=== PATIENT | female | born 1970 | race American Indian/Alaskan Native ===

== ENCOUNTER 2017-04-03 11:18 | Emergency (ER) | payer OTHER ==
[2017-04-03 11:32] VITALS: BP 139/87; PULSE 75; TEMP 98.1; BMI 32.9
--- NOTE | 2017-04-03 12:53 | PDOC ---
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 The patient was HepC +. Blood was drawn from her and the patient to test for HIV and HepB. The patient did clean the area after the needle stick and is requesting HIV test here as well as bloodwork. Past History - Past Medical History Allergies/Adverse Reactions: Allergies Allergy/AdvReac Type Severity Reaction Status Date / Time metformin Allergy Verified 04/03/17 11:32 Home Medications: Ambulatory Orders Levothyroxine [Synthroid -] 75 mcg PO DAILY 05/24/14 COPD: No Thyroid Disease: Yes (nodule) - Suicide/Smoking/Psychosocial Hx Smoking History: Never smoked Number of Cigarettes Smoked Daily: 0 Hx Alcohol Use: No Drug/Substance Use Hx: No Substance Use Type: None Review of Systems - Review of Systems Able to Perform ROS?: Yes Integumentary: Yes: Other (needle stick to 4th finger of right hand) *Physical Exam - Vital Signs Last Vital Signs Temp Pulse Resp BP Pulse Ox 98.1 F 75 16 139/87 100 04/03/17 11:29 04/03/17 11:29 04/03/17 11:29 04/03/17 11:29 04/03/17 11:29 - Physical Exam Extremity: positive: Normal Range of Motion, Other (small puncture wound to right 4th digit without active bleeding, surrounding erythema or edema. ) Post Exposure - ED Protocol - Exposure Treatment Washing/Decontamination: Soap/Water Source Patient HIV Status:: Unknown (Patient is known Hepatitis C positive. 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 The patient requests HIV test here as well as bloodwork) Is PEP indicated?: No Prophylaxis for HIV discussed?: Yes Prophylaxis given?: No Prophylaxis refused?: No Baseline bloods drawn prophylaxis:(use *Exposure-Hosp Emp): Yes - Referrals Employee Referred to Employee Health:: Yes Medical Decision Making - Medical Decision Making A/P: 46 y/o female with needle stick injury today from patient with known Hep C. Plan is to test for HIV and do baseline bloodwork. Patient was informed there is no PEP for Hep C and conversion rate of 1.8%. HIV - negative Gave patient her results. Instructed her to return if the blood work comes back from the patient with + HIV or Hep B status. The patient verbalizes understanding of all instructions, has no further questions and is awaiting discharge. *DC/Admit/Observation/Transfer Diagnosis at time of Disposition: Exposure to blood or body fluid Needlestick injury of finger Qualifiers: Encounter type: initial encounter Qualified Code(s): S61.239A - Puncture wound without foreign body of unspecified finger without damage to nail, initial encounter - Discharge Dispostion Disposition: HOME Condition at time of disposition: Good - Referrals Referrals: Nisa Mccall MD [Primary Care Provider] - - Patient Instructions Printed Discharge Instructions: How to Handle Body Fluid Exposure -- Healthcare Worker Additional Instructions: Discharge Instructions: -Return to the ER if the patient's blood work is Positive for HIV or Hepatitis B. - Post Discharge Activity Forms/Work/School Notes: Back to Work
[2017-04-04 06:06] LABS: HBsAG SCREEN Negative (Negative)
== END 2017-04-03 15:06 | disposition home or self-care (01) ==
LOC: JERFT 11:18
DX: Z77.21 Contact with and (suspected) exposure to potentially hazardous body fluids (principal); S61.234A Puncture wound without foreign body of right ring finger without damage to nail, initial encounter; W46.1XXA Contact with contaminated hypodermic needle, initial encounter; Y93.F9 Activity, other caregiving; Y92.538 Other ambulatory health services establishments as the place of occurrence of the external cause; Y99.0 Civilian activity done for income or pay
CPT/HCPCS: 36415; 84460; 86803; 87340; 87389; 99281-25